=== PATIENT | female | born 1990 | race Two or more races ===

== ENCOUNTER 2018-07-24 13:00 | Inpatient (IN) | payer MEDICAID ==
[~2018-07-24] VITALS: Ht 167.6 cm; Wt 109.4 kg
--- NOTE | 2018-07-24 13:18 | TRIAGE ---
OB Triage Datetime Report Generated by CPN: 07/24/2018 13:17 Datetime: 07/24/2018 13:17 Stage of : OB Triage Assessment Type: Triage Maternal Assessment Level of Consciousness: Fully Conscious DTR's/Clonus: DTRs 2+; No Clonus Headache: Denies Blurred Vision: No Respiratory Effort: Unlabored; Regular Rhythm; Equal Expansion Breath Sounds, Left: Clear and Equal Breath Sounds, Right: Clear and Equal Nausea/Vomiting: Denies RUQ Epigastric Pain: Denies Lower Extremities Edema: None Upper Extremities Edema: None Facial Edema: None Temperature Route: Axillary Fall Risk Assessment History of Falling: (0) No Secondary Diagnosis: (0) No Ambulatory Aid: (0) Bedrest/Nurse Assist IV Therapy: (0) No Gait: (0) Normal/Bedrest/Immobile Mental Status: (0) Oriented to Own Ability Fall Score: 0 Fall Risk Score Definition: No Risk: No action required Datetime: 07/24/2018 13:11 Assessment Type: Admission Assessment Time of Arrival: 07/24/2018 12:55 EGA: 37.6 Arrived By: Ambulatory Arrived From: Home Chief Complaint: srom?, UC'S since 1100 Movement: Present Contractions: Regular Time Contractions Began: 07/24/2018 11:00 Rupture of Membranes: Ruptured Vaginal Bleeding: None Vaginal Discharge: Present Abdominal Trauma: Not Applicable Patient Complaints: Contractions Additional Patient Complaints: NST, VE Maternal Assessment Level of Consciousness: Fully Conscious DTR's/Clonus: DTRs 2+; No Clonus Headache: Denies Blurred Vision: No Respiratory Effort: Unlabored; Regular Rhythm; Equal Expansion Breath Sounds, Left: Clear and Equal Breath Sounds, Right: Clear and Equal Nausea/Vomiting: Denies RUQ Epigastric Pain: Denies Facial Edema: None Fall Risk Assessment History of Falling: (0) No Secondary Diagnosis: (0) No Ambulatory Aid: (0) Bedrest/Nurse Assist IV Therapy: (0) No Gait: (0) Normal/Bedrest/Immobile Mental Status: (0) Oriented to Own Ability Fall Score: 0 Fall Risk Score Definition: No Risk: No action required Datetime: 07/24/2018 13:06 Time of Arrival: 07/24/2018 13:00 EGA: 37.6 Arrived By: Ambulatory Arrived From: Home Datetime: 07/24/2018 13:04 Vaginal Exam Dilatation (cms): 3.0 Effacement (%): 100 Station: -2 Exam By: LH Datetime: 07/24/2018 13:02 Stage of : OB Triage Temperature Route: Oral
[2018-07-24 13:22] VITALS: Ht 167.6 cm; Wt 109.4 kg
[2018-07-24 13:23] VITALS: BP 122/79; PULSE 86; RESP 20
[2018-07-24] MEDS ORDERED: CARBOPROST 250 MCG INJ IM PRN ×2 (13:30→16:30)
[2018-07-24] MEDS ORDERED: MISOPROSTOL 200 MCG TAB PR PRN ×2 (13:30→16:30)
[2018-07-24] MEDS ORDERED: OXYTOCIN 30 UNITS/LR 500 ML IV SCH ×3 (13:30→16:21)
[2018-07-24] MEDS ORDERED: LIDOCAINE 1% (MPF) 30 ML INJ INJ PRN (13:30)
[2018-07-24] MEDS ORDERED: METHYLERGONOVINE 0.2 MG INJ IM PRN ×2 (13:30→16:30)
[2018-07-24] MEDS ORDERED: OXYTOCIN 30 UNITS/LR 500 ML IV PRN ×2 (13:30→16:30)
--- NOTE | 2018-07-24 14:08 | LDN ---
Date/Time of Note Date/Time of Note DATE: 07/24/18 TIME: 14:06 Delivery Summary Placenta Delivered: Spontaneously Meconium: none Episiotomy: No Perineal laceration: 1 Anesthesia type: Local Estimated blood loss: 200 Sponge & Needle done & correct: Yes All needle counts correct: Yes Infant Delivery Information Apgars 1 Minute: 9 5 Minute: 9 Suctioning Nose & mouth suctioned at viktoriya: Yes Delee suction performed: Yes Umbilical Cord Umbilical cord with: 3 Vessels Cord presentations: no nuchal cord Cord Blood was obtained: Yes Mother & Baby Disposition Disposition Mom & Baby to Maternity; Good: Yes Baby to NICU: No MARIPOSA SOLORZANO M.D. Jul 24, 2018 14:08
--- NOTE | 2018-07-24 14:09 | HP ---
Date/Time of Note Date/Time of Note DATE: 07/24/18 TIME: 14:08 OB - History Hx of Present Free Text/Dictation 36+wks GA in labor : 2 Para: 1 Care: Good Care Ultrasounds: Normal mid trimester US Obstetrical Complications: None Medical Complications: None Past Family/Social History * Past Medical, Surgical, Family and Obstetric Histories reviewed from chart. OB Admission Exam Vital Signs Vital Signs Vital Signs Date Temp Pulse Resp B/P (MAP) Pulse Ox O2 O2 Flow FiO2 Time Delivery Rate 07/24/18 98.7 86 20 122/79 Room Air 13:23 (93) Physical Exam Abdomen: WNL Extremities: Normal Cervical Dilatation: 9cm Effacement: 100% Station: -1 Membranes: Ruptured Heart Rate: 140's Accelerations: Accelerations Present Decelerations: No Decelerations Varibility: Moderate Contractions on Admission: 6-10 Minutes Apart Last 72 hours Lab Results CBC & BMP 07/24/18 13:30 OB Assessment/Plan Reason for admission: observation Other Assessment: PMH Denies PSH Denies Plan: Expectant Management MARIPOSA SOLORZANO M.D. Jul 24, 2018 14:09
[2018-07-24] MEDS: OXYTOCIN 30 UNITS/LR 500 ML IV SCH ×2 (14:14→16:19)
[2018-07-24 16:00] VITALS: BP 121/71; PULSE 83; RESP 18
[2018-07-24] MEDS ORDERED: LANOLIN HPA 1 PKT TOP PRN (16:30)
[2018-07-24] MEDS ORDERED: SENNA/DOCUSATE NA (8.6MG/50MG) TAB PO PRN (16:30)
[2018-07-24] MEDS ORDERED: OXYCODONE/ASPIRIN (4.88/325) TAB PO PRN (16:30)
[2018-07-24] MEDS ORDERED: WITCH HAZEL/GLYCERIN PAD PR PRN (16:30)
[2018-07-24] MEDS ORDERED: BENZOCAINE 20% 56 ML SPRAY TOP PRN (16:30)
[2018-07-24] MEDS ORDERED: ZOLPIDEM 5 MG TAB PO PRN (16:30)
[2018-07-24] MEDS ORDERED: ONDANSETRON 4 MG INJ IV PRN (16:30)
[2018-07-24] MEDS ORDERED: NACL 0.9% 3 ML SYG IV SCH (16:30)
[2018-07-24 16:52] VITALS: BP 119/66; PULSE 82; RESP 18
[2018-07-24] MEDS: IBUPROFEN 600 MG TAB PO SCH ×2 (17:24→23:31)
[2018-07-24 20:00] VITALS: BP 127/69; PULSE 100; RESP 20
[2018-07-24] MEDS: MAGNESIUM HYDROXIDE 30ML CUP PO SCH (21:27)
[2018-07-24] MEDS: SENNA/DOCUSATE NA (8.6MG/50MG) TAB PO SCH (21:27)
[2018-07-25 04:12] VITALS: BP 113/56; PULSE 85; RESP 20
[2018-07-25] MEDS: IBUPROFEN 600 MG TAB PO SCH ×3 (04:59→18:08)
[2018-07-25 08:15] VITALS: BP 113/77; PULSE 82; RESP 20
[2018-07-25] MEDS: SENNA/DOCUSATE NA (8.6MG/50MG) TAB PO SCH ×2 (09:44→21:00)
[2018-07-25] MEDS: MAGNESIUM HYDROXIDE 30ML CUP PO SCH ×2 (09:44→21:00)
[2018-07-25 12:00] VITALS: BP 103/56; PULSE 73; RESP 20
[2018-07-25 16:00] VITALS: BP 123/70; PULSE 78; RESP 20
--- NOTE | 2018-07-25 16:47 | QN ---
Documentation Comment PPD#1 is stable afebrile No VB +BM +voids VS stable Gen NAD Abd soft NT ND Genitalia No blood at peroneum --->discharge plan home tomorrow MARIPOSA SOLORZANO M.D. Jul 25, 2018 16:47
--- NOTE | 2018-07-25 16:47 | DS ---
Date/Time of Note Date/Time of Note DATE: 07/25/18 TIME: 16:47 Discharge Summary Admission/Discharge Info Admit Date/Time Jul 24, 2018 at 13:07 Discharge Date/Time 07/26/2018 Discharge Diagnosis Patient Condition: Good Hospital Course uneventful Primary Care Provider Care Physician No Primary Pending Labs Laboratory Tests Test 07/25/18 06:37 07/25/18 08:11 Lab Scanned Report REFER[facility] LAB [id number] White Blood Count 13.2 10^3/ul (4.8-10.8) Red Blood Count 4.42 10^6/ul (4.20-5.40) Hemoglobin 11.0 g/dl (12.0-16.0) Hematocrit 34.9 % (37.0-47.0) Mean Corpuscular Volume 79.0 fl (82.0-101.0) Mean Corpuscular Hemoglobin 24.9 pg (29.0-33.0) Mean Corpuscular 31.5 g/dl (32.0-37.0) Hemoglobin Concent Red Cell Distribution Width 16.2 % (11.5-14.5) Platelet Count 370 10^3/UL (140-415) Mean Platelet Volume 10.2 fl (7.4-10.4) Immature Granulocytes % 0.400 % (0.001-0.429) Neutrophils % 71.3 % (39.0-77.0) Lymphocytes % 18.2 % (15.0-51.0) Monocytes % 8.8 % (0.0-11.0) Eosinophils % 1.1 % (0.0-7.0) Basophils % 0.2 % (0.0-2.0) Nucleated Red Blood Cells % 0.0 /100WBC (0.0-0.0) Immature Granulocytes # 0.050 10^3/ul (0.0-0.031) Neutrophils # 9.4 10^3/ul (1.6-7.5) Lymphocytes # 2.4 10^3/ul (0.8-2.9) Monocytes # 1.2 10^3/ul (0.3-0.9) Eosinophils # 0.2 10^3/ul (0.0-0.5) Basophils # 0.0 10^3/ul (0.0-0.1) Nucleated Red Blood Cells # 0.0 10^3/ul (0.0-0.0) MARIPOSA SOLORZANO M.D. Jul 25, 2018 16:47
[2018-07-25 20:00] VITALS: BP 107/66; PULSE 89; RESP 18
[2018-07-26] MEDS: IBUPROFEN 600 MG TAB PO SCH ×3 (00:21→12:00)
[2018-07-26 04:44] VITALS: BP 107/55; PULSE 67; RESP 18
[2018-07-26 08:15] VITALS: BP 112/65; PULSE 82; RESP 20
[2018-07-26] MEDS ORDERED: DIPHTH/TET/ACEL PERTUSS (ADULT) 0.5 ML VIAL IM* ONE (09:00)
[2018-07-26] MEDS: SENNA/DOCUSATE NA (8.6MG/50MG) TAB PO SCH (09:00)
[2018-07-26] MEDS: MAGNESIUM HYDROXIDE 30ML CUP PO SCH (09:00)
--- NOTE | 2018-07-27 14:37 | DELSUM ---
Delivery Summary A-C Datetime Report Generated by CPN: 07/27/2018 14:37 DELIVERY PERSONNEL [employer]: Ayala, Antonia MATERNAL INFORMATION Delivery Anesthesia: None Medications in Delivery: PITOCIN 20 UNITS, METHERGIN , CYTOTEC Delivery QBL (ml): 200 Placenta Cultured: No LABOR SUMMARY EDC: 08/08/2018 00:00 No. Babies in Womb: 1 Attempted: No Labor Anesthesia: None LABOR INFORMATION Reason for Induction: Not Applicable Onset of Labor: 07/24/2018 09:00 Complete Dilatation: 07/24/2018 13:35 Oxytocin: N/A Group B Beta Strep: Negative Steroids Given: None Reason Steroids Not Administered: Not Applicable MEMBRANES Membranes Rupture Method: Spontaneous Rupture of Membranes: 07/24/2018 11:00 Length of Rupture (hr): 2.80 Amniotic Fluid Color: Clear Amniotic Fluid Amount: Moderate Amniotic Fluid Odor: Normal STAGES OF LABOR Stage 1 hr: 4 Stage 1 min: 35 Stage 2 hr: 0 Stage 2 min: 13 Stage 3 hr: 0 Stage 3 min: 2 Total Time in Labor hr: 4 Total Time in Labor min: 50 VAGINAL DELIVERY Episiotomy: None Laceration Extension: N/A Laceration Type: None Laceration Repair: Yes Initial Vag Sponge Count: 10 Final Vag Sponge Count: 10 Initial Vag Sharps Count: 1 Final Vag Sharps Count: 1 Sponge Count Correct: Yes Sharps Count Correct: Yes BABY A INFORMATION Infant Delivery Date/Time: 07/24/2018 13:48 Method of Delivery: Vaginal Born in Route : No : N/A Forceps: N/A Vacuum Extraction: N/A Shoulder Dystocia : N/A SHOULDER DYSTOCIA BABY A Infant Delivery Date/Time: 07/24/2018 13:48 PRESENTATION/POSITION BABY A Presentation: Cephalic Cephalic Presentation: Vertex Vertex Position: Left Occipital Anterior Breech Presentation: N/A PLACENTA INFORMATION BABY A Placenta Delivery Time : 07/24/2018 13:50 Placenta Method of Delivery: Spontaneous Placenta Status: Delivered SCORES BABY A Heart Rate 1 min: >100 bpm Resp Effort 1 min: Good Cry Reflex Irritability 1 min: Cough/Sneeze/Pulls Away Muscle Tone 1 min: Active Motion Color 1 min: Body Wever, Extremit Blue SCORE 1 MIN: 9 Heart Rate 5 min: >100 bpm Resp Effort 5 min: Good Cry Reflex Irritability 5 min: Cough/Sneeze/Pulls Away Muscle Tone 5 min: Active Motion Color 5 min: Body Wever, Extremit Blue SCORE 5 MIN: 9 INFANT INFORMATION BABY A Gestational Age at Delivery: 37.6 Gestational Status: Early Term- 37- 38.6 Weeks Outcome : Liveborn Infant Condition : Stable Sex: Male IDENTIFICATION/MEDS BABY A ID Band Number: [id number] ID Band Location: Right Leg Sensor Applied: Yes Sensor Location : Cord Clamp Vitamin K Given : Aquamephyton 0.5 mg IM Erythromycin Given: Given Both Eyes WEIGHT/LENGTH BABY A Infant Birthweight (gm): 3320 Infant Weight (lb): 7 Infant Weight (oz): 5 Infant Length (in): 20.00 Infant Length (cm): 50.80 CORD INFORMATION BABY A No. Cord Vessels: 3 Nuchal Cord : N/A Cord Blood Taken: Yes ASSESSMENT BABY A Complications: None Infant Respirations: Appears Normal Manager Of Patient/ALS Called : No Transferred To: Remains with Mother
== END 2018-07-26 13:00 | disposition home or self-care (01) | DRG 807 ==
LOC: OBT 13:00 → EDBD 13:00 → L-D 13:00 → OBT 13:14 → PP1 16:00
PROVIDERS: ADMIT Obstetrics & Gynecology; ATTEND Obstetrics & Gynecology
PROC: 10E0XZZ Delivery of Products of Conception, External Approach (ICD-10-PCS; principal; 2018-07-24)
PROC: 0HQ9XZZ Repair Perineum Skin, External Approach (ICD-10-PCS; 2018-07-24)
DX: O99.214 Obesity complicating childbirth (principal); Z37.0 Single live birth; E66.9 Obesity, unspecified; O24.420 Gestational diabetes mellitus in childbirth, diet controlled; O70.9 Perineal laceration during delivery, unspecified; Z3A.37 37 weeks gestation of pregnancy; Z23 Encounter for immunization
CPT/HCPCS: 76815; 85025; 85610; 85730; 86592; 86850; 86900; 86901; 90715; G0463; J2210; J2590